=== PATIENT | female | born 1930 | race Caucasian/White ===

== ENCOUNTER 2017-07-17 19:18 | Emergency (ER) | payer MEDICARE, MEDICAID ==
[2017-07-17 20:11] LABS: BASO % 0.2 % (0-6); EOS % 3.6 % (0-6); GRAN % 51.1 % (47-80); HEMATOCRIT 35.1 % (35.0-47.0); HEMOGLOBIN 12.1 gm/dl (11.6-16.0); LYMPH % 34.8 % (16-45); MEAN CELL VOLUME 92.6 fl (81-97); MEAN CORPUSCULAR HEMOGLOBIN 31.9 pg (27-33); MEAN CORPUSCULAR HGB CONC 34.5 g/dl (32-36); MEAN PLATELET VOLUME 10.5 fl (7.4-10.4); MONO % 10.3 % (0-9); PLATELET COUNT 175 K/uL (130-400); RED BLOOD COUNT 3.79 M/uL (3.80-5.40); RED CELL DISTRIBUTION WIDTH 12.4 % (11.5-14.5); WHITE BLOOD COUNT W/O DIFF 5.8 K/uL (4.2-12.2)
[2017-07-17 20:40] LABS: BLOOD UREA NITROGEN 22 mg/dL (8-23); CREATINE PHOSPHOKINASE 73 U/L (26-192); CREATININE 0.6 mg/dL (0.5-0.9); EST GLOMERULAR FILTRATION RATE > 60 mL/min; GLUCOSE,RANDOM 107 mg/dL (74-109)
--- NOTE | 2017-07-17 21:04 | Emergency Department Record ---
History of Present Illness - General Chief Complaint: Fall Injury Stated Complaint: FALL INJURY, LEFT SIDE OF BODY Time Seen by Provider: 07/17/17 19:41 Source: Patient Mode of Arrival: Ambulatory Limitations: No limitations - History of Present Illness Initial Comments: pt fell on her sidewalk 3 days ago injuring her l hip and thigh and hitting her head. she was able to get back up. she has had increasing pain in her head and neck and has extensive bruising of her l hip. 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 Place Fall Occurred: Home Loss of Consciousness: Unsure Prolonged Down Time?: No Location: Head, Neck Location - Extremities: Left: Thigh Severity scale (1-10): 8 Quality: Aching Associated Symptoms: Denies - Jones Coma Scale Eye Response: (4) Open spontaneously Motor Response: (6) Obeys commands Verbal Response: (5) Oriented Jones Total: 15 - Related Data Home Medications Medication Instructions Recorded Confirmed Last Taken Atorvastatin Calcium 40 mg PO QHS 07/17/17 07/17/17 Unknown Hydrocodone/Acetaminophen 0.5 - 1 tab PO Q4H PRN 07/17/17 07/17/17 Unknown [Hydrocodone/Acetaminophen 5mg/325mg] Naproxen 500 mg PO BID PRN 07/17/17 07/17/17 Unknown Allergies Allergy/AdvReac Type Severity Reaction Status Date / Time No Known Drug Allergies Allergy Verified 11/02/15 09:49 Travel Screening - Travel/Exposure Within Last 30 Days Have you traveled within the last 30 days?: No Review of Systems Reviewed: No additional complaints except as noted below Constitutional: Reports: As per HPI. Denies: Chills, Fever, Malaise, Night sweats, Weakness, Weight change Eyes: Reports: As per HPI. Denies: Eye discharge, Eye pain, Photophobia, Vision change ENT: Reports: As per HPI. Denies: Congestion, Dental pain, Ear pain, Epistaxis , Hearing loss, Throat pain Respiratory: Reports: As per HPI. Denies: Cough, Dyspnea, Hemoptysis, Stridor, Wheezes Cardiovascular: Reports: As per HPI. Denies: Arrhythmia, Chest pain, Dyspnea on exertion, Edema, Murmurs, Orthopnea, Palpitations, Paroxysmal nocturnal dyspnea, Rheumatic Fever, Syncope Endocrine: Reports: As per HPI. Denies: Fatigue, Heat or cold intolerance, Polydipsia, Polyuria Gastrointestinal: Reports: As per HPI. Denies: Abdominal pain, Constipation, Diarrhea, Hematemesis, Hematochezia, Melena, Nausea, Vomiting Genitourinary: Reports: As per HPI. Denies: Abnormal menses, Discharge, Dyspareunia, Dysuria, Frequency, Hematuria, Incontinence, Retention, Urgency Musculoskeletal: Reports: As per HPI. Denies: Arthralgia, Back pain, Gout, Joint swelling, Myalgia, Neck pain Skin: Reports: As per HPI. Denies: Bruising, Change in color, Change in hair/ nails, Lesions, Pruritus, Rash Neurological: Reports: As per HPI. Denies: Abnormal gait, Confusion, Headache, Numbness, Paresthesias, Seizure, Tingling, Tremors, Vertigo, Weakness Psychiatric: Reports: As per HPI. Denies: Anxiety, Auditory hallucinations, Depression, Homicidal thoughts, Suicidal thoughts, Visual hallucinations Hematological/Lymphatic: Reports: As per HPI. Denies: Anemia, Blood Clots, Easy bleeding, Easy bruising, Swollen glands Past Medical History - SOCIAL HISTORY Smoking Status: Never smoker Alcohol Use: None Drug Use: None - RESPIRATORY Hx Respiratory Disorders: No - CARDIOVASCULAR Hx Cardio Disorders: Yes Hx Hypertension: Yes Comment:: high cholestrol - NEURO Hx Neuro Disorders: No - GI Hx GI Disorders: Yes Hx Reflux: Yes - Hx Genitourinary Disorders: No - ENDOCRINE Hx Endocrine Disorders: No - MUSCULOSKELETAL Hx Musculoskeletal Disorders: Yes Hx Arthritis: Yes - PSYCH Hx Psych Problems: No - HEMATOLOGY/ONCOLOGY Hx Hematology/Oncology Disorders: No Family Medical History Any Significant Family History?: No Physical Exam - General General Appearance: Alert, Oriented x3, Cooperative, Mild distress - Head Head exam: Normal inspection Head exam detail: Contusion - Eye Eye exam: Normal appearance, PERRL, EOMI Pupils: Normal accommodation - ENT ENT exam: Normal exam, Mucous membranes moist, Normal external ear exam, Normal orophraynx Ear exam: Normal external inspection. negative: External canal tenderness Nasal Exam: Normal inspection. negative: Discharge, Sinus tenderness Mouth exam: Normal external inspection, Tongue normal Teeth exam: Normal inspection. negative: Dental caries Throat exam: Normal inspection. negative: Tonsillar erythema, Tonsillar exudate - Neck Neck exam: Normal inspection, Full ROM. negative: Tenderness - Respiratory Respiratory exam: Normal lung sounds bilaterally. negative: Respiratory distress - Cardiovascular Cardiovascular Exam: Regular rate, Normal rhythm, Normal heart sounds - GI/Abdominal GI/Abdominal exam: Soft, Normal bowel sounds. negative: Tenderness - Rectal Rectal exam: Deferred - exam: Deferred - Extremities Extremities exam: Full ROM, Normal capillary refill, Tenderness Image of Full Body: 1 - extensive ecchymosis, tenderness. - Back Back exam: Reports: Normal inspection, Full ROM. Denies: Muscle spasm, Rash noted, Tenderness - Neurological Neurological exam: Alert, CN II-XII intact, Normal gait, Oriented X3 - Psychiatric Psychiatric exam: Normal affect, Normal mood - Skin Skin exam: Dry, Intact, Normal color, Warm Course Vital Signs 07/17/17 19:38 Temperature 98.3 F Pulse Rate [ 56 L Pulse Ox Probe] Respiratory 24 Rate Blood Pressure 156/117 [Right Arm] Pulse Ox 99 Medical Decision Making - Lab Data Result diagrams: 07/17/17 20:00 07/17/17 20:00 Lab Results 07/17/17 07/17/17 Range/Units 20:00 20:00 WBC 5.8 (4.2-12.2) K/uL RBC 3.79 L (3.80-5.40) M/uL Hgb 12.1 (11.6-16.0) gm/dl Hct 35.1 (35.0-47.0) % MCV 92.6 (81-97) fl MCH 31.9 (27-33) pg MCHC 34.5 (32-36) g/dl RDW 12.4 (11.5-14.5) % Plt Count 175 (130-400) K/uL MPV 10.5 H (7.4-10.4) fl Gran % 51.1 (47-80) % Lymphocytes % 34.8 (16-45) % Monocytes % 10.3 H (0-9) % Eosinophils % 3.6 (0-6) % Basophils % 0.2 (0-6) % Sodium 138 (136-145) mmol/L Potassium 4.0 (3.4-4.5) mmol/L Chloride 99 (98-107) mmol/L Carbon Dioxide 26.0 (22-29) mmol/L Anion Gap 13.0 (7-16) BUN 22 (8-23) mg/dL Creatinine 0.6 (0.5-0.9) mg/dL Estimated GFR > 60 mL/min Random Glucose 107 (74-109) mg/dL Calcium 8.9 (8.8-10.2) mg/dL Creatine Kinase 73 (26-192) U/L Disposition Disposition: Discharge Clinical Impression: Head injury Qualifiers: Encounter type: initial encounter Qualified Code(s): S09.90XA - Unspecified injury of head, initial encounter Contusion, hip and thigh Qualifiers: Encounter type: initial encounter Laterality: left Qualified Code(s): S70.02XA - Contusion of left hip, initial encounter; S70.12XA - Contusion of left thigh, initial encounter; S70.12XA - Contusion of left thigh, initial encounter Disposition: Home, Self-Care Condition: (1) Good Instructions: Fall Prevention for Older Adults (ED), Head Injury (ED), Contusion in Adults (ED) Additional Instructions: ice and moist heat. follow up with family doctor. return sooner if worse. tylenol for pain Forms: Patient Portal Access Quality - Quality Measures Quality Measures: N/A - Blood Pressure Screening Does Patient Have Any of the Following: No Blood Pressure Classification: Hypertensive Reading Systolic Measurement: 143 Diastolic Measurement: 78 Screening for High Blood Pressure: < Pre-Hypertensive BP, F/U Documented > [ G8950] Pre-Hypertensive Follow-up Interventions: Follow-up with rescreen every year.
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
--- NOTE | 2017-07-19 10:58 | RADIOLOGY REPORT ---
DATE: 07/17/2017 at 2043. EXAM: THREE-VIEW, LEFT HIP. HISTORY: Fall. Left hip injury and pain. COMPARISON: Left hip dated 01/17/2001. ENCOUNTER: Initial. TECHNIQUE: Three views of the left hip were obtained. FINDINGS: The sacrum is intact. Mild osteoarthritic change of the left femoroacetabular joint with slight joint space narrowing and small osteophytes. No acute fracture. IMPRESSION: MILD ARTHRITIC CHANGE OF THE LEFT FEMOROACETABULAR JOINT. NO ACUTE FRACTURE. JOB NUMBER: [id number] [facility]
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
== END 2017-07-17 21:58 | disposition home or self-care (01) ==
LOC: ER 19:18
DX: S09.90XA Unspecified injury of head, initial encounter (principal); S70.02XA Contusion of left hip, initial encounter; S70.12XA Contusion of left thigh, initial encounter; M54.2 Cervicalgia; I10 Essential (primary) hypertension; W07.XXXA Fall from chair, initial encounter; Y92.009 Unspecified place in unspecified non-institutional (private) residence as the place of occurrence of the external cause
CPT/HCPCS: 70450; 72125; 80048; 82550; 85025; 99283; 99284

== ENCOUNTER 2017-11-15 14:22 | Emergency (ER) | payer MEDICAID, MEDICARE, OTHER ==
[2017-11-15 16:14] LABS: BASO % 0.1 % (0-6); EOS % 1.6 % (0-6); GRAN % 68.7 % (47-80); HEMATOCRIT 39.2 % (35.0-47.0); HEMOGLOBIN 13.7 gm/dl (11.6-16.0); LYMPH % 22.5 % (16-45); MEAN CELL VOLUME 92.5 fl (81-97); MEAN CORPUSCULAR HEMOGLOBIN 32.3 pg (27-33); MEAN CORPUSCULAR HGB CONC 34.9 g/dl (32-36); MEAN PLATELET VOLUME 10.3 fl (7.4-10.4); MONO % 7.1 % (0-9); PLATELET COUNT 207 K/uL (130-400); RED BLOOD COUNT 4.24 M/uL (3.80-5.40); RED CELL DISTRIBUTION WIDTH 12.1 % (11.5-14.5)
[2017-11-15 16:36] LABS: BLOOD UREA NITROGEN 19 mg/dL (8-23)
[2017-11-15 16:37] LABS: CREATININE 0.5 mg/dL (0.5-0.9); EST GLOMERULAR FILTRATION RATE > 60 mL/min
[2017-11-15 16:39] LABS: GLUCOSE,RANDOM 102 mg/dL (74-109)
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
== END 2017-11-15 19:26 | disposition home or self-care (01) ==
LOC: ER 14:22
DX: S16.1XXA Strain of muscle, fascia and tendon at neck level, initial encounter (principal); S60.211A Contusion of right wrist, initial encounter; R51 Headache; R07.89 Other chest pain; R10.9 Unspecified abdominal pain; I10 Essential (primary) hypertension; V43.52XA Car driver injured in collision with other type car in traffic accident, initial encounter
CPT/HCPCS: 99283; 99284; 85025; 80048; 72125; 71260; 70450; 74177; Q9967; 74160

== ENCOUNTER 2018-05-10 17:21 | Emergency (ER) | payer MEDICARE, MEDICAID ==
--- NOTE | 2018-05-10 17:50 | Emergency Department Record ---
History of Present Illness - General Chief Complaint: Fall Injury Stated Complaint: FALL ON FRIDAY, RT SHOULDER/BACK /SIDE PAIN Time Seen by Provider: 05/10/18 17:43 Mode of Arrival: Wheelchair - History of Present Illness Initial Comments: fall 6 days and has multiple complaints ,Fell forward in the garden. 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 She tripped on garden stones Complaint: Fall Onset/Timin -: Days(s) Fall From: Standing Fall Witnessed: No Place Fall Occurred: Home Loss of Consciousness: Unsure Severity: Moderate Severity scale (1-10): 7 Quality: Aching Associated Symptoms: Denies - [place] Coma Scale Eye Response: (4) Open spontaneously Motor Response: (6) Obeys commands Verbal Response: (5) Oriented Nessa Total: 15 - Related Data Home Medications Medication Instructions Recorded Confirmed Last Taken Acetaminophen 500 mg PO ASDIR 05/10/18 05/10/18 05/10/18 Allergies Allergy/AdvReac Type Severity Reaction Status Date / Time No Known Drug Allergies Allergy Verified 05/10/18 17:32 Travel Screening - Travel/Exposure Within Last 30 Days Have you traveled within the last 30 days?: No Review of Systems Reviewed: No additional complaints except as noted below Constitutional: Reports: As per HPI. Denies: Chills, Fever, Malaise, Night sweats, Weakness, Weight change Eyes: Reports: As per HPI. Denies: Eye discharge, Eye pain, Photophobia, Vision change ENT: Reports: As per HPI. Denies: Congestion, Dental pain, Ear pain, Epistaxis , Hearing loss, Throat pain Respiratory: Reports: As per HPI. Denies: Cough, Dyspnea, Hemoptysis, Stridor, Wheezes Cardiovascular: Reports: As per HPI. Denies: Arrhythmia, Chest pain, Dyspnea on exertion, Edema, Murmurs, Orthopnea, Palpitations, Paroxysmal nocturnal dyspnea, Rheumatic Fever, Syncope Endocrine: Reports: As per HPI. Denies: Fatigue, Heat or cold intolerance, Polydipsia, Polyuria Gastrointestinal: Reports: As per HPI. Denies: Abdominal pain, Constipation, Diarrhea, Hematemesis, Hematochezia, Melena, Nausea, Vomiting Genitourinary: Reports: As per HPI. Denies: Abnormal menses, Discharge, Dyspareunia, Dysuria, Frequency, Hematuria, Incontinence, Retention, Urgency Musculoskeletal: Reports: As per HPI. Denies: Arthralgia, Back pain, Gout, Joint swelling, Myalgia, Neck pain Skin: Reports: As per HPI. Denies: Bruising, Change in color, Change in hair/ nails, Lesions, Pruritus, Rash Neurological: Reports: As per HPI. Denies: Abnormal gait, Confusion, Headache, Numbness, Paresthesias, Seizure, Tingling, Tremors, Vertigo, Weakness Psychiatric: Reports: As per HPI. Denies: Anxiety, Auditory hallucinations, Depression, Homicidal thoughts, Suicidal thoughts, Visual hallucinations Hematological/Lymphatic: Reports: As per HPI. Denies: Anemia, Blood Clots, Easy bleeding, Easy bruising, Swollen glands Past Medical History - SOCIAL HISTORY Smoking Status: Never smoker Alcohol Use: None Drug Use: None - RESPIRATORY Hx Respiratory Disorders: No - CARDIOVASCULAR Hx Cardio Disorders: Yes Hx Hypertension: Yes Comment:: high cholestrol - NEURO Hx Neuro Disorders: No - GI Hx GI Disorders: Yes Hx Reflux: Yes - Hx Genitourinary Disorders: No - ENDOCRINE Hx Endocrine Disorders: No - MUSCULOSKELETAL Hx Musculoskeletal Disorders: Yes Hx Arthritis: Yes - PSYCH Hx Psych Problems: No - HEMATOLOGY/ONCOLOGY Hx Hematology/Oncology Disorders: No Family Medical History Any Significant Family History?: No Physical Exam - General General Appearance: Alert, Oriented x3, Cooperative, No acute distress - Head Head exam: Normal inspection - Eye Eye exam: Normal appearance, PERRL Pupils: Normal accommodation - ENT ENT exam: Normal exam, Mucous membranes moist, Normal external ear exam, Normal orophraynx, TM's normal bilaterally Ear exam: Normal external inspection. negative: External canal tenderness Nasal Exam: Normal inspection. negative: Discharge, Sinus tenderness Mouth exam: Normal external inspection, Tongue normal Teeth exam: Normal inspection. negative: Dental caries Throat exam: Normal inspection. negative: Tonsillar erythema, Tonsillar exudate - Neck Neck exam: Normal inspection, Full ROM, Tenderness (small amount of neck pain with palpation C6) - Respiratory Respiratory exam: Normal lung sounds bilaterally, Other (left rib pain). negative: Respiratory distress - Cardiovascular Cardiovascular Exam: Regular rate, Normal rhythm, Normal heart sounds, Other ( left rib cage pain) - GI/Abdominal GI/Abdominal exam: Soft, Normal bowel sounds. negative: Tenderness - Rectal Rectal exam: Deferred - exam: Deferred - Extremities Extremities exam: Full ROM, Normal capillary refill, Tenderness (right elbow and right shoulder ) - Back Back exam: Reports: Normal inspection, Full ROM. Denies: Muscle spasm, Rash noted, Tenderness - Neurological Neurological exam: Alert, Normal gait, Oriented X3, Reflexes normal - Psychiatric Psychiatric exam: Normal affect, Normal mood - Skin Skin exam: Dry, Intact, Normal color, Warm Course Vital Signs 05/10/18 17:28 Temperature 98.3 F Pulse Rate 63 Respiratory 22 Rate Blood Pressure 138/85 Pulse Ox 97 - Reevaluation(s) Reevaluation #1: case over to Dr. Vega at 7 pm 05/10/18 19:00 05/10/18 19:00 Patient still in xray. Medical Decision Making - Lab Data Result diagrams: 05/10/18 18:00 Disposition Forms: Patient Portal Access Quality - Quality Measures Quality Measures: N/A - Blood Pressure Screening Does Patient Have Any of the Following: No Blood Pressure Classification: Pre-Hypertensive BP Reading Systolic Measurement: 138 Diastolic Measurement: 85 Screening for High Blood Pressure: < Pre-Hypertensive BP, F/U Documented > [ G8950] Pre-Hypertensive Follow-up Interventions: Referral to alternative/primary care provider.
[2018-05-10 18:10] LABS: BASO % 0.2 % (0-6); EOS % 2.5 % (0-6); GRAN % 57.7 % (47-80); HEMATOCRIT 38.6 % (35.0-47.0); HEMOGLOBIN 13.1 gm/dl (11.6-16.0); LYMPH % 29.9 % (16-45); MEAN CELL VOLUME 92.8 fl (81-97); MEAN CORPUSCULAR HEMOGLOBIN 31.5 pg (27-33); MEAN CORPUSCULAR HGB CONC 33.9 g/dl (32-36); MEAN PLATELET VOLUME 10.3 fl (7.4-10.4); MONO % 9.7 % (0-9); PLATELET COUNT 170 K/uL (130-400); RED BLOOD COUNT 4.16 M/uL (3.80-5.40); RED CELL DISTRIBUTION WIDTH 12.3 % (11.5-14.5); WHITE BLOOD COUNT W/O DIFF 6.3 K/uL (4.2-12.2)
--- NOTE | 2018-05-10 20:07 | Emergency Department Record ---
History of Present Illness - General Chief Complaint: Fall Injury Stated Complaint: FALL ON FRIDAY, RT SHOULDER/BACK /SIDE PAIN Time Seen by Provider: 05/10/18 17:43 Mode of Arrival: Wheelchair - History of Present Illness Onset/Timin -: Days(s) Fall From: Standing Fall Witnessed: No Place Fall Occurred: Home Loss of Consciousness: Unsure Severity: Moderate Severity scale (1-10): 7 Quality: Aching Associated Symptoms: Denies - [place] Coma Scale Eye Response: (4) Open spontaneously Motor Response: (6) Obeys commands Verbal Response: (5) Oriented [place]essa Total: 15 - Related Data Home Medications Medication Instructions Recorded Confirmed Last Taken Acetaminophen 500 mg PO ASDIR 05/10/18 05/10/18 05/10/18 Allergies Allergy/AdvReac Type Severity Reaction Status Date / Time No Known Drug Allergies Allergy Verified 05/10/18 17:32 Travel Screening - Travel/Exposure Within Last 30 Days Have you traveled within the last 30 days?: No Review of Systems Constitutional: Reports: As per HPI. Denies: Chills, Fever, Malaise, Night sweats, Weakness, Weight change Eyes: Reports: As per HPI. Denies: Eye discharge, Eye pain, Photophobia, Vision change ENT: Reports: As per HPI. Denies: Congestion, Dental pain, Ear pain, Epistaxis , Hearing loss, Throat pain Respiratory: Reports: As per HPI. Denies: Cough, Dyspnea, Hemoptysis, Stridor, Wheezes Cardiovascular: Reports: As per HPI. Denies: Arrhythmia, Chest pain, Dyspnea on exertion, Edema, Murmurs, Orthopnea, Palpitations, Paroxysmal nocturnal dyspnea, Rheumatic Fever, Syncope Endocrine: Reports: As per HPI. Denies: Fatigue, Heat or cold intolerance, Polydipsia, Polyuria Gastrointestinal: Reports: As per HPI. Denies: Abdominal pain, Constipation, Diarrhea, Hematemesis, Hematochezia, Melena, Nausea, Vomiting Genitourinary: Reports: As per HPI. Denies: Abnormal menses, Discharge, Dyspareunia, Dysuria, Frequency, Hematuria, Incontinence, Retention, Urgency Musculoskeletal: Reports: As per HPI. Denies: Arthralgia, Back pain, Gout, Joint swelling, Myalgia, Neck pain Skin: Reports: As per HPI. Denies: Bruising, Change in color, Change in hair/ nails, Lesions, Pruritus, Rash Neurological: Reports: As per HPI. Denies: Abnormal gait, Confusion, Headache, Numbness, Paresthesias, Seizure, Tingling, Tremors, Vertigo, Weakness Psychiatric: Reports: As per HPI. Denies: Anxiety, Auditory hallucinations, Depression, Homicidal thoughts, Suicidal thoughts, Visual hallucinations Hematological/Lymphatic: Reports: As per HPI. Denies: Anemia, Blood Clots, Easy bleeding, Easy bruising, Swollen glands Past Medical History - SOCIAL HISTORY Smoking Status: Never smoker Alcohol Use: None Drug Use: None - RESPIRATORY Hx Respiratory Disorders: No - CARDIOVASCULAR Hx Cardio Disorders: Yes Hx Hypertension: Yes Comment:: high cholestrol - NEURO Hx Neuro Disorders: No - GI Hx GI Disorders: Yes Hx Reflux: Yes - Hx Genitourinary Disorders: No - ENDOCRINE Hx Endocrine Disorders: No - MUSCULOSKELETAL Hx Musculoskeletal Disorders: Yes Hx Arthritis: Yes - PSYCH Hx Psych Problems: No - HEMATOLOGY/ONCOLOGY Hx Hematology/Oncology Disorders: No Family Medical History Any Significant Family History?: No Course Vital Signs 05/10/18 05/10/18 17:28 19:43 Temperature 98.3 F 97.8 F Pulse Rate 63 Pulse Rate [ 52 L Pulse Ox Probe] Respiratory 22 14 Rate Blood Pressure 138/85 Blood Pressure 145/79 [Left Arm] Pulse Ox 97 94 L - Reevaluation(s) Reevaluation #1: 05/10/18 20:[address] and [address] neg for fractures Reevaluation #2: 05/10/18 20:06 pt has pain med at home Medical Decision Making - Lab Data Result diagrams: 05/10/18 18:00 Lab Results 05/10/18 Range/Units 18:00 WBC 6.3 (4.2-12.2) K/uL RBC 4.16 (3.80-5.40) M/uL Hgb 13.1 (11.6-16.0) gm/dl Hct 38.6 (35.0-47.0) % MCV 92.8 (81-97) fl MCH 31.5 (27-33) pg MCHC 33.9 (32-36) g/dl RDW 12.3 (11.5-14.5) % Plt Count 170 (130-400) K/uL MPV 10.3 (7.4-10.4) fl Gran % 57.7 (47-80) % Lymphocytes % 29.9 (16-45) % Monocytes % 9.7 H (0-9) % Eosinophils % 2.5 (0-6) % Basophils % 0.2 (0-6) % Disposition Disposition: Discharge Clinical Impression: Multiple contusions Disposition: Home, Self-Care Condition: (1) Good Instructions: Fall Prevention for Older Adults (ED), Rib Contusion (ED), Contusion in Adults (ED) Additional Instructions: follow up with family doctor. return sooner if worse. Forms: Patient Portal Access Quality - Quality Measures Quality Measures: N/A - Blood Pressure Screening Does Patient Have Any of the Following: No Blood Pressure Classification: Pre-Hypertensive BP Reading Systolic Measurement: 138 Diastolic Measurement: 85 Screening for High Blood Pressure: < Pre-Hypertensive BP, F/U Documented > [ G8950] Pre-Hypertensive Follow-up Interventions: Follow-up with rescreen every year.
--- NOTE | 2018-05-11 13:03 | CT SCAN REPORT ---
EXAM: CT SCAN OF THE CERVICAL SPINE HISTORY: PATIENT HAS A HISTORY OF PAIN IN THE UPPER EXTREMITY. PATIENT HAS A HISTORY OF FALL. TECHNIQUE: Serial axial CT scan of the cervical spine was performed at 2.5 mm intervals from the base of the skull to the thoracic inlet without the use of intravenous contrast. Sagittal and coronal reconstructions are provided. Comparison: CT scan of the cervical spine dated 11/15/17. FINDINGS: The vertebral body height, contour, and AP alignment of the cervical spine is within normal limits. There is no CT evidence of a fracture or dislocation of the cervical spine. Multilevel degenerative disk disease of the cervical spine is noted. The prevertebral soft tissue is unremarkable. There is heterogeneous attenuation of the thyroid gland which appears similar to the prior CT scan. If there is further clinical concern then an ultrasound examination of the thyroid gland can be obtained for further evaluation. The visualized submandibular and parotid glands are unremarkable. Airways are patent. The lung windows of the visualized lung chapman demonstrates no focal infiltrates or pleural effusions. IMPRESSION: MULTILEVEL DEGENERATIVE DISK DISEASE OF THE CERVICAL SPINE IS NOTED WITHOUT CT EVIDENCE OF AN ACUTE PROCESS INVOLVING THE CERVICAL SPINE. THESE FINDINGS ARE SIMILAR TO THE PRIOR EXAMINATION. [facility]BER: [id number] [facility]
--- NOTE | 2018-05-11 13:11 | RADIOLOGY REPORT ---
EXAM: CHEST, TWO VIEWS HISTORY: PATIENT HAS A HISTORY OF CHEST PAIN. TECHNIQUE: Two views of the chest are provided along with comparison study dated 12/01/96. FINDINGS: The cardiomediastinal silhouette is within normal limits for size and contour. The eufemia appear unremarkable. There is no radiographic evidence of a focal infiltrate or pleural effusion. No pneumothorax is noted. IMPRESSION: NO RADIOGRAPHIC EVIDENCE OF AN ACUTE INTRATHORACIC PROCESS. J[facility]: [id number] [facility]
--- NOTE | 2018-05-11 13:16 | RADIOLOGY REPORT ---
EXAM: RIGHT ELBOW HISTORY: PATIENT HAS A HISTORY OF FALL. TECHNIQUE: Four views of the right elbow are provided without comparison examination. FINDINGS: There is no radiographic evidence of a fracture or dislocation of the right elbow. Osteoarthritic changes are identified predominantly in the medial compartment. No significant soft tissue swelling is noted. Antecubital fat pad is within normal limits. IMPRESSION: MILD OSTEOARTHRITIC CHANGES ARE IDENTIFIED WITHIN THE RIGHT ELBOW WITHOUT RADIOGRAPHIC EVIDENCE OF AN ACUTE FRACTURE OR DISLOCATION OF THE RIGHT ELBOW. [facility]: [id number] [facility]
--- NOTE | 2018-05-11 13:25 | RADIOLOGY REPORT ---
EXAM: CHEST AND LEFT RIBS HISTORY: PATIENT HAS A HISTORY OF FALL. TECHNIQUE: AP view of the chest and multiple views of the left ribs are provided along with a comparison study dated 12/05/15. FINDINGS: There is no radiographic evidence of a fracture or dislocation of the left ribs. No obvious pneumothorax is noted. IMPRESSION: UNREMARKABLE PLAIN FILM RADIOGRAPH OF THE LEFT RIBS. IF THERE IS FURTHER CLINICAL CONCERN THEN A BONE SCAN CAN BE OBTAINED FOR FURTHER EVALUATION. JOB NUMBER: [id number] [facility]
--- NOTE | 2018-05-11 13:28 | RADIOLOGY REPORT ---
EXAM: RIGHT SHOULDER HISTORY: PATIENT HAS A HISTORY OF FALL. TECHNIQUE: Multiple views of the right shoulder are provided without comparison examinations. FINDINGS: There is no radiographic evidence of a fracture or dislocation of the right shoulder. No significant soft tissue abnormalities are visualized. The visualized right chest is unremarkable. IMPRESSION: NO RADIOGRAPHIC EVIDENCE OF AN ACUTE PROCESS INVOLVING THE RIGHT SHOULDER. IF THERE IS FURTHER CLINICAL CONCERN THEN MRI OF THE RIGHT SHOULDER CAN BE OBTAINED FOR FURTHER EVALUATION. JOB NUMBER: [id number] [facility]
== END 2018-05-10 20:21 | disposition home or self-care (01) ==
LOC: ER 17:21
DX: S40.011A Contusion of right shoulder, initial encounter (principal); S20.221A Contusion of right back wall of thorax, initial encounter; W18.31XA Fall on same level due to stepping on an object, initial encounter; Y93.01 Activity, walking, marching and hiking; Y92.017 Garden or yard in single-family (private) house as the place of occurrence of the external cause; I10 Essential (primary) hypertension; E78.00 Pure hypercholesterolemia, unspecified
CPT/HCPCS: 71046; 72125; 85025; 94010; 99283